=== PATIENT | male | born 1975 | race Caucasian/White ===

== ENCOUNTER 2017-03-09 22:28 | Emergency (ER) | payer OTHER ==
[2017-03-09 22:39] VITALS: TEMP 98.4
--- NOTE | 2017-03-09 23:46 | EDPHY ---
H & P Stated Complaint: right foot injury HPI/ROS: HPI CHIEF COMPLAINT: Right great toe pain HISTORY OF PRESENT ILLNESS: Patient very pleasant 41-year-old male no significant medical history does not take any daily medications presents emergency room with discomfort and swelling and ecchymosis noted to the right great toe. Patient states that around 4:00 p.m. today he was carrying groceries and stubbed his right great toe on the stairs. He states pain. However the swelling got worse and throbbing got worse tonight with some discoloration that he decided come the emergency room for evaluation. He is able to bear weight on it. He is neurovascularly intact. Denies ankle or knee pain. Pain is currently 4/10. Past Medical History: No significant medical history Past Surgical History: No significant surgical history Social History: Lives locally denies drugs alcohol tobacco products. Family History: Noncontributory ROS REVIEW OF SYSTEMS: A comprehensive 10 point review of systems is otherwise negative aside from elements mentioned in the history of present illness. Exam Constitutional appears well nontoxic triage nursing summary reviewed, vital signs reviewed, awake/alert. Eyes normal conjunctivae and sclera, EOMI, PERRLA. HENT normal inspection, atraumatic, moist mucus membranes, no epistaxis, neck supple/ no meningismus, no raccoon eyes. Respiratory clear to auscultation bilaterally, normal breath sounds, no respiratory distress, no wheezing. Cardiovascular rate normal, regular rhythm, no murmur, no edema, distal pulses normal. Gastrointestinal soft, non-tender, no rebound, no guarding, normal bowel sounds, no distension, no pulsatile mass. Genitourinary no CVA tenderness. Musculoskeletal right foot: Good distal pulse. At the base of the right great toe there is ecchymosis and swelling. Good cap refill. Mild tenderness palpation at the base of the right great toe. Ecchymosis noted. Good cap refill. Full range of motion. no midline vertebral tenderness, full range of motion, no calf swelling, no tenderness of extremities, no meningismus, good pulses, neurovascularly intact. Skin pink, warm, & dry, no rash, skin atraumatic. Neurologic awake, alert and oriented x 3, AAOx3, moves all 4 extremities equally, motor intact, sensory intact, CN II-XII intact, normal cerebellar, normal vision, normal speech. Psychiatric normal mood/affect. Heme/Lymph/Immune no lymphadenopathy. Differential Diagnosis: Includes but is not limited to in a particular order foot contusion, toe fracture, soft tissue injury, dislocation Medical Decision Making: Plan for this patient x-ray right foot. Will recommend anti-inflammatory pain medicine and ice. Recommend follow up with Podiatry. Walking boot for comfort. Re-evaluation: X-ray of the right great toe reviewed. This shows a fracture. Patient be placed in a walking boot. We discussed walking boot for splint. 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 Patient prefer walking boot. Will prescribe a walking boot here in emergency room. Additionally ibuprofen and Plessis for pain control. Additionally highly recommend he follows up with Podiatry before getting on his trip. If he can see Podiatry on Saturday morning that would be great. He understands this. Return precautions discussed. Prescriptions given for Plessis and ibuprofen. Source: Patient - Personal History Current Tetanus Diphtheria and Acellular Pertussis (TDAP): Yes - Medical/Surgical History Hx Asthma: No Hx Chronic Respiratory Disease: No Hx Diabetes: No Hx Cardiac Disease: No Hx Renal Disease: No Hx Cirrhosis: No Hx Alcoholism: No Hx HIV/AIDS: No Hx Splenectomy or Spleen Trauma: No - Social History Smoking Status: Never smoked Constitutional: Initial Vital Signs Temperature (C) 36.9 C 03/09/17 22:37 Heart Rate 92 03/09/17 22:37 Respiratory Rate 20 03/09/17 22:37 Blood Pressure 117/70 03/09/17 22:37 O2 Sat (%) 97 03/09/17 22:37 O2 Delivery Mode Room Air Allergies/Adverse Reactions: No Known Allergies Allergy (Unverified 03/09/17 22:36) Home Medications: Medication Instructions Recorded Hydrocodone/APAP 5/325 [Plessis 1 - 2 tab PO Q4H PRN #10 tab 03/10/17 5/325] Ibuprofen [Motrin (*)] 800 mg PO Q6-8PRN #10 tab 03/10/17 Medical Decision Making - Diagnostics Imaging Results: Imaging Impressions Toe X-Ray 03/09/17 23:52 Impression: Acute minimally angulated fracture proximal phalanx great toe. Departure - Departure Disposition: Home, Routine, Self-Care Clinical Impression: Toe fracture, right Qualifiers: Encounter type: initial encounter Toe: great toe Fracture type: closed Phalanx : distal Fracture alignment: displaced Qualified Code(s): S92.421A - Displaced fracture of distal phalanx of right great toe, initial encounter for closed fracture Condition: Good Instructions: Hydrocodone/Acetaminophen (By mouth), Toe Fracture (ED) Additional Instructions: 1. Ice your foot. 2. Anti-inflammatory pain medicine like Tylenol Motrin for pain control. 3. Walking boot for comfort. 4. Follow up with Podiatry. Prescriptions: Hydrocodone/APAP 5/325 [Plessis 5/325] 1 - 2 tab PO Q4H PRN #10 tab PRN Reason: Pain, Moderate Ibuprofen [Motrin (*)] 800 mg PO Q6-8PRN #10 tab
[2017-03-09] MEDS ORDERED: IBUPROFEN 600 MG TAB PO ONE (23:52)
[2017-03-10] MEDS ORDERED: HYDROCOD/APAP 5/325 PREPACK#6 BTL TAKEHOME ONE (00:26)
[2017-03-10 01:05] VITALS: BP 128/89; PULSE 80; RESP 16; O2SAT 96
== END 2017-03-10 01:06 | disposition home or self-care (01) ==
DX: S92.421A Displaced fracture of distal phalanx of right great toe, initial encounter for closed fracture (principal); W23.1XXA Caught, crushed, jammed, or pinched between stationary objects, initial encounter; Y93.89 Activity, other specified
CPT/HCPCS: L4386